=== PATIENT | male | born 1945 | race Caucasian/White ===

== ENCOUNTER 2017-06-29 10:10 | Observation (INO) ==
[2017-06-29] MEDS ORDERED: Aspirin 81 MG TAB.CHEW PO ONE (10:19)
[2017-06-29] MEDS ORDERED: Nitroglycerin 1 INCH/GM PACKET TP ONE (10:19)
--- NOTE | 2017-06-29 10:23 | Emergency Department Note ---
Disposition Clinical Impression: Left against medical advice Chest pain Qualifiers: Chest pain type: unspecified Qualified Code(s): R07.9 - Chest pain, unspecified Disposition: Home, Self-Care Condition: Undetermined Instructions: Chest Pain (ED), Against Medical Advice (ED), Hypertension (ED) Reasons to Return/Additional Instructions: Follow-up with someone of your choosing from the below reference site this week for recheck and for discussion of further ongoing outpatient evaluation and treatment. Return to the ED immediately for any new or worsening symptoms or any time to complete treatment and evaluation. Blood pressure screening: When you had your blood pressure taken, if the top number was greater than 120 or the bottom number was greater than 80, I discussed and recommended that you call your primary care provider or a physician of your choice this week to arrange follow-up for further evaluation of your blood pressure. Elevated blood pressures which go untreated can lead to stroke, heart attack, kidney failure, and other life-threatening diseases. This is a screening exam and recommednations are to follow with your family physician. (We discussed why the elevation could be occurring at this time. If you have had an EKG and/or x-ray performed in the emergency department, it will be reviewed by the security software engineer and/or radiologist. If the review changes your diagnosis or treatment you will be contacted at the phone number you provided. Prescribed outpatient testing: Please call to schedule an appointment for the test that was ordered on the form provided. If you have been prescribed an antibiotic: Take it as instructed until it is all finished. If you cannot tolerate that medication for some reason, call your physician for replacement. If you had a specimen collected for a culture: A culture report takes 48-72 hours to generate. You will be contacted if a change in treatment is needed. Return to the ED immediately if your condition worsens or if you have severe pain, fever, vomiting, or difficulty breathing or any other concerns. If you received or were prescribed a medication that may cause drowsiness ( Including Tramadol, Phenergan, Diazepam, Lorazepam, Hydroxyzine, Xanax, Hydrocodone, Oxycodone, Codeine, etc) DO NOT drive, drink alcohol, or operate machinery that requires you to be alert for at least 8 hours after taking that medication. If you smoke or chew tobacco products: discuss with your family physician options to help in the cessation in the use of tobacco products. If you do not have a physician: Go to [email or web address] or call [facility]: [phone] [facility]: [phone] [facility]: [phone] Time of Disposition: 12:00 Chest Pain HPI - General Chief Complaint: ED Chest Pain Stated Complaint: Chest Pain Source: patient Limitations: no limitations - History of Present Illness HPI Narrative: Patient presents to the emergency department for evaluation of substernal chest pain. He states that the pain began approximately 2 hours ago without inciting incident or injury. He describes the pain is dull without radiation or migration. He states that he did have some shortness of breath that has since resolved. No nausea vomiting or diaphoresis. Denies lower extremity edema or calf discomfort. Denies pain in the back or jaw or arms. He reports a history of an abdominal aortic aneurysm that has been repaired, denies symptoms today concerning for acute aortic pathology. I reviewed the CTA of the chest abdomen pelvis performed in March of this year. It confirms stable aortic aneurysm that time status post repair. Severity scale (1-10): 9 - Related Data Home Medications Medication Instructions Recorded Confirmed No Known Home Drugs 06/29/17 06/29/17 Allergies Allergy/AdvReac Type Severity Reaction Status Date / Time codeine AdvReac Shakiness Verified 03/08/17 20:45 Constitutional: Denies: fever, chills, weakness Eyes: Denies: eye pain, vision change ENT ED: Denies: throat pain, dysphagia Cardiovascular: Reports: chest pain. Denies: palpitations, dyspnea on exertion , orthopnea, edema, syncope, paroxysmal nocturnal dyspnea Respiratory: Reports: cough (Mild nonproductive cough). Denies: hemoptysis Gastrointestinal: Denies: abdominal pain, nausea, vomiting, diarrhea, constipation, melena, hematochezia Genitourinary: Denies: urgency, dysuria, frequency, hematuria Musculoskeletal: Denies: back pain, neck pain, joint swelling, arthralgia Integumentary: Denies: rash Neurological: Denies: headache, weakness, numbness, paresthesias, confusion, abnormal gait Psychiatric: Denies: anxiety Chest Pain PMH - Past Medical History Medical history: Reports: aortic aneurysm, coronary artery disease, hypertension , kidney stones, myocardial infarction Surgical history: Reports: herniorrhaphy, vascular surgery (AAA stent & repair) Psychiatric history: Reports: anxiety, depression - Social History Smoking Status: Former smoker Alcohol use: Reports: occasionally Drug use: Reports: none Physical Exam - General Limitations: no limitations General appearance: alert, in no apparent distress - Head Head exam: atraumatic, normocephalic, normal inspection - Eye Eye exam: Present: normal appearance, PERRL, EOMI. Absent: scleral icterus - ENT ENT exam: normal exam, normal oropharynx, mucous membranes moist - Neck Neck exam: Present: normal inspection, full ROM, trachea midline - Chest Chest inspection: Present: normal inspection, symmetric chest wall rise - Respiratory Respiratory exam: Present: normal lung sounds bilaterally - Cardiovascular Cardiovascular exam: Present: regular rate, normal rhythm, normal heart sounds - Abdominal Exam Abdominal exam: Present: soft, Non-Tender, normal bowel sounds. Absent: tenderness, distention, guarding, rebound, rigidity - Extremities Exam Extremities exam: Present: normal inspection, full ROM, normal capillary refill , other (Normal symmetrical distal pulses exam). Absent: tenderness, pedal edema, joint swelling, calf tenderness - Expanded Lower Extremity Exam Neurovascular/Tendon exam: Present: normal capillary refill. Absent: pulse deficit, motor deficit, sensory deficit - Back Exam Back exam: Present: normal inspection, full ROM. Absent: tenderness - Neurological Exam Neurological exam: Present: alert, oriented X3 - Psychiatric Psychiatric exam: Present: normal affect, normal mood - Skin Skin exam: Present: warm, dry, intact, normal color Course Course Narrative: Had an extensive conversation with family. They report patient does have a history with buying narcotics illicitly off the street. Today's presentation is not consistent with an acute infectious process to include valvular lesion, consideration was also given to acute aortic pathology and pulmonary embolism is felt to be unlikely based on his presentation. Patient does not notice blood pressure typically runs it appears that he has chronic underlying hypertension patient will be admitted to the hospitalist service for ongoing evaluation and treatment. The patient is alert oriented and appropriate. He is not intoxicated. He has a clear thought content. He has requested to sign out AGAINST MEDICAL ADVICE. Nursing staff as well as myself had a conversation with the patient with family present. I advised him the risks include permanent disability and . He understands these risks and still requests to sign out AGAINST MEDICAL ADVICE. He was recently seen at a facility in [place] and has unfilled prescriptions for aspirin and a blood pressure medication. Advised him to follow-up with the primary care provider for further ongoing outpatient valuation and treatment and that he may return to the ED at any time to complete treatment. Vital Signs Temperature 99.4 F 06/29/17 10:12 Pulse Rate 81 06/29/17 10:12 Respiratory Rate 16 06/29/17 10:12 Blood Pressure 199/105 06/29/17 10:12 O2 Sat by Pulse Oximetry 98 06/29/17 10:12 Temperature 99.4 F 06/29/17 10:12 Pulse Rate 69 06/29/17 11:51 Respiratory Rate 18 06/29/17 11:51 Blood Pressure 224/108 06/29/17 11:51 O2 Sat by Pulse Oximetry 100 06/29/17 11:51 Oxygen Delivery Oxygen Delivery Room Air Chest Pain - Lab Data Lab results reviewed: Yes I reviewed the patient's lab results. Result diagrams: 06/29/17 10:34 06/29/17 10:34 Lab Results 06/29/17 06/29/17 06/29/17 Range/Units 10:34 10:34 10:34 WBC (4.3-11.1) K/mcL RBC (4.19-5.50) M/mcL Hgb (12.9-16.9) g/dL Hct (37.5-50.1) % MCV (83.0-100.0) fL MCH (28.0-33.3) pg MCHC (31.6-35.5) g/dL RDW (11.5-14.5) % Plt Count (140-400) K/mcL Immature Gran % (0-4) % Seg Neutrophils % % Lymphocytes % % Monocytes % % Eosinophils % % Basophils % % Neutrophils # (1.6-8.9) K/mcL Lymphocytes # (0.6-4.6) K/mcL Monocytes # (0.0-1.3) K/mcL Eosinophils # (0.0-0.6) K/mcL Basophils # (0.0-0.2) K/mcL Hypochromasia (Not Present) Anisocytosis (Not Present) Microcytosis (Not Present) PT 14.4 H (9.4-12.1) Seconds INR 1.3 APTT 28.6 (26.0-36.0) Seconds Sodium (136-145) mEq/L Potassium (3.5-4.5) mEq/L Chloride (98-109) mEq/L Carbon Dioxide (19-29) mEq/L BUN (8-26) mg/dL Creatinine (0.72-1.25) mg/dL Est GFR ( Amer) (> 60) Est GFR (Non-Af Amer) (> 60) BUN/Creatinine Ratio (6-26) Glucose (70-99) mg/dL Calculated Osmolality (280-300) Calcium (8.6-10.8) mg/dL Total Bilirubin 0.6 (0.2-1.2) mg/dL Direct Bilirubin 0.3 (0.0-0.5) mg/dL Indirect Bilirubin 0.3 (0.0-1.2) mg/dL AST 17 (5-34) Units/L ALT 14 (0-55) Units/L Alkaline Phosphatase 78 (38-126) Units/L Troponin I (0-0.03) ng/mL Serum Total Protein 7.1 (6.0-8.3) g/dL Albumin 3.5 (3.5-5.0) g/dL Globulin 3.6 H (2.4-3.5) g/dL Albumin/Globulin Ratio 1.0 L (1.1-2.2) Lipase 13 (8-78) Units/L 06/29/17 06/29/17 06/29/17 Range/Units 10:34 10:34 10:34 WBC 4.9 (4.3-11.1) K/mcL RBC 4.50 (4.19-5.50) M/mcL Hgb 8.8 L (12.9-16.9) g/dL Hct 31.3 L (37.5-50.1) % MCV 69.6 L (83.0-100.0) fL MCH 19.6 L (28.0-33.3) pg MCHC 28.1 L (31.6-35.5) g/dL RDW 27.1 H (11.5-14.5) % Plt Count 285 (140-400) K/mcL Immature Gran % 0.4 (0-4) % Seg Neutrophils % 72.0 % Lymphocytes % 18.2 % Monocytes % 8.2 % Eosinophils % 0.6 % Basophils % 0.6 % Neutrophils # 3.5 (1.6-8.9) K/mcL Lymphocytes # 0.9 (0.6-4.6) K/mcL Monocytes # 0.4 (0.0-1.3) K/mcL Eosinophils # 0.0 (0.0-0.6) K/mcL Basophils # 0.0 (0.0-0.2) K/mcL Hypochromasia Present A (Not Present) Anisocytosis 1+ A (Not Present) Microcytosis Present A (Not Present) PT (9.4-12.1) Seconds INR APTT (26.0-36.0) Seconds Sodium 141 (136-145) mEq/L Potassium 3.3 L (3.5-4.5) mEq/L Chloride 105 (98-109) mEq/L Carbon Dioxide 24 (19-29) mEq/L BUN 12 (8-26) mg/dL Creatinine 1.10 (0.72-1.25) mg/dL Est GFR ( Amer) > 60 (> 60) Est GFR (Non-Af Amer) > 60 (> 60) BUN/Creatinine Ratio 11 (6-26) Glucose 117 H (70-99) mg/dL Calculated Osmolality 293 (280-300) Calcium 9.0 (8.6-10.8) mg/dL Total Bilirubin (0.2-1.2) mg/dL Direct Bilirubin (0.0-0.5) mg/dL Indirect Bilirubin (0.0-1.2) mg/dL AST (5-34) Units/L ALT (0-55) Units/L Alkaline Phosphatase (38-126) Units/L Troponin I 0.00 (0-0.03) ng/mL Serum Total Protein (6.0-8.3) g/dL Albumin (3.5-5.0) g/dL Globulin (2.4-3.5) g/dL Albumin/Globulin Ratio (1.1-2.2) Lipase (8-78) Units/L ITS Impressions Chest X-Ray 06/29/17 10:19 IMPRESSION: No evidence for acute cardiopulmonary process. D/ / 06/29/2017 11:03:17 Reno Quispe MD / suni Interpreting Provider: Reno Quispe MD - Radiology Data Radiology results reviewed: Yes I reviewed the patient's radiology results. - EKG Data EKG attestation: Yes I reviewed and interpreted this EKG. EKG shows normal: sinus rhythm (Normal sinus rhythm at a rate of 77. No acute ST segment or T-wave changes.)
[2017-06-29 10:50] LABS: INR 1.3; Prothrombin Time 14.4 Seconds (9.4-12.1)
[2017-06-29 10:53] LABS: Activated Partial Thrombo Time 28.6 Seconds (26.0-36.0)
[2017-06-29 11:00] LABS: Albumin 3.5 g/dL (3.5-5.0); Bilirubin,Direct 0.3 mg/dL (0.0-0.5); Bilirubin,Indirect 0.3 mg/dL (0.0-1.2); Bilirubin,Total 0.6 mg/dL (0.2-1.2); Globulin 3.6 g/dL (2.4-3.5); Total Protein 7.1 g/dL (6.0-8.3)
[2017-06-29 11:01] LABS: Basophils % 0.6 %; Eosinophils % 0.6 %; Hematocrit 31.3 % (37.5-50.1); Hemoglobin 8.8 g/dL (12.9-16.9); Immature Granulocytes % 0.4 % (0-4); Lymphocytes # 0.9 K/mcL (0.6-4.6); Lymphocytes % 18.2 %; Mean Corpuscular HGB Conc 28.1 g/dL (31.6-35.5); Mean Corpuscular Hemoglobin 19.6 pg (28.0-33.3); Mean Corpuscular Volume 69.6 fL (83.0-100.0); Monocytes # 0.4 K/mcL (0.0-1.3); Monocytes % 8.2 %; Neutrophils # 3.5 K/mcL (1.6-8.9); Platelet Count 285 K/mcL (140-400); Red Cell Distribution Width 27.1 % (11.5-14.5)
[2017-06-29 11:09] LABS: BUN/Creatinine Ratio 11 (6-26); Blood Urea Nitrogen 12 mg/dL (8-26); Carbon Dioxide 24 mEq/L (19-29); Chloride 105 mEq/L (98-109); Glucose 117 mg/dL (70-99); Osmolality,Calculated 293 (280-300); Potassium 3.3 mEq/L (3.5-4.5); Sodium 141 mEq/L (136-145); eGFR For African Americans > 60 (> 60); eGFR For Non-African Americans > 60 (> 60)
[2017-06-29 11:22] LABS: Anisocytosis 1+ (Not Present)
[2017-06-29 11:23] LABS: Hypochromasia Present (Not Present); Microcytosis Present (Not Present)
[2017-06-29] MEDS ORDERED: Potassium Chloride Elixir 20 MEQ/15 ML UDC PO ONE (11:32)
[2017-06-29] MEDS ORDERED: Naloxone 0.4 MG/ML INJ IVP PRN (12:11)
[2017-06-29] MEDS ORDERED: Acetaminophen 325 MG TABLET PO PRN (12:11)
[2017-06-29 13:37] LABS: Amphetamine Screen,Urine Negative ng/mL (Cutoff=1000); Barbiturate Screen,Urine Negative ng/mL (Cutoff=200); Benzodiazepines Screen,Urine Negative ng/mL (Cutoff=200); Cannabinoid Screen,Urine Negative ng/mL (Cutoff = 50); Cocaine Screen,Urine Negative ng/mL (Cutoff= 300); Opiate Screen,Urine Negative ng/mL (Cutoff=300); Phencyclidine Screen,Urine Negative ng/mL (Cutoff=25)
--- NOTE | 2017-06-29 15:23 | Internal Med History&Physical ---
Date of Encounter: 06/29/17 Time of Encounter: 14:50 Assessment and Plan (1) Chest pain Current visit: Yes Status: Acute Suspect chest wall origin. Will give ibuprofen when necessary. Repeat cardiac enzymes will be done. Qualifiers: Chest pain type: precordial pain Qualified Code(s): R07.2 - Precordial pain (2) Anemia Current visit: Yes Status: Acute Suspect iron deficiency. Will order anemia testing in a.m. Qualifiers: Anemia type: unspecified type Qualified Code(s): D64.9 - Anemia, unspecified (3) Hypokalemia Current visit: Yes Status: Acute Etiology not obvious. We will give supplemental potassium and monitor labs (4) Hypertension Current visit: No Status: Acute He was given IV Vasotec in emergency room. I will add oral Norvasc. Blood pressures will be monitored. Qualifiers: Hypertension type: essential hypertension Qualified Code(s): I10 - Essential (primary) hypertension Internal Medicine - H&P: HPI Chief complaint: Chest pain Admitted From: Home Plans for Post Hospital Care: Home History of present illness: Mr. Saxena is a 71 year old male who came to emergency room stating he had onset of discomfort in his chest while at leisure approximately 8 AM. He describes it as a dull sensation in his left anterior chest that came on slowly. It has increased in the hours since onset to level of 8/10 now. He came to emergency room and was evaluated and felt to deserve admission for ongoing care needs. He reports a previous similar episode several months ago. He does not get chest pain on exertion but admits he does not do much exertional activity. His cardiovascular history is significant for hypertension. He does not presently follow with a PCP/physician or take prescription medication. He claims he had an [place] in the 1980s followed by a heart catheter without further intervention recommended. Denies heart failure DVT or pulmonary embolus. Past Med Surg Social Fam HX - Past Medical History Medical history: aortic aneurysm, coronary artery disease, hypertension, kidney stones, myocardial infarction Psychiatric history: anxiety, depression - Past Surgical History Surgical History: herniorrhaphy, vascular surgery - Social History Smoking Status: Former smoker Smokeless Tobacco Status: No Alcohol use: occasionally Drug use: none - Family History Mother Living Status: Hx Family Cardiac Disorders: Yes (AZ) Father Living Status: Hx Family Cancer: Yes (Skin cancer) Internal Medicine - H&P: Meds No Known Home Drugs 06/29/17 [History] 3 Allergy/AdvReac Type Severity Reaction Status Date / Time codeine AdvReac Shakiness Verified 03/08/17 20:45 All Systems PM: A 10-system review of systems was performed and is negative for pertinent findings except as documented above in the HPI. Review of systems: Gen.: He states his weight has been stable the past few months Cardiovascular: As per history of present illness Respiratory: He states he started smoking at age 25 and quit approximately one month ago. He smoked up to one pack per day. He denies diagnosis of COPD but does not recall having PFTs. He does not use home oxygen. He denies being tested for sleep apnea. GI: His had occasional diarrhea in the past few months. He denies disorders of his liver gallbladder or exocrine pancreas otherwise. He was hospitalized at [facility] [place] March 2017 with acute blood loss anemia from upper GI bleed from NSAID use. EGD found bleeding duodenal bulb ulcer which was treated during endoscopy. : He has history of kidney stones. He denies other kidney bladder prostate disorders Neurologic: He denies large distribution strokes or seizures Endocrine: He denies diabetes thyroid disease or hyperlipidemia Hematology/oncology: Denies blood disorders cancers or anemia Psychiatric: He has anxiety but denies depression or other mental health issues Musculoskeletal: He denies arthritis gout or other bone joint or muscle disorders. - Constitutional Vitals: Temp Pulse Resp BP Pulse Ox 99.3 F 71 17 201/108 97 06/29/17 14:10 06/29/17 14:10 06/29/17 14:10 06/29/17 14:10 06/29/17 14:10 Exam: Gen.: He is a well-developed well-nourished male who appears in no acute distress at present time HEENT: Head is atraumatic and normocephalic. Eyes: EOMI. There is no scleral icterus. Mouth: Mucosa is moist. Neck: Supple and nontender. There is no thyromegaly or adenopathy noted. Heart: Regular without murmurs gallops or ectopics. Lungs: No wheezes or crackles are heard. Abdomen: Soft and nontender. No masses or guarding noted. Chest: He has tenderness in his chest wall to palpation at the site of chest pain. He states "that is the pain" on compressing the chest wall at that site. Extremities: There is no cyanosis edema or clubbing noted. Dorsalis pedis and posttibial pulses are 1-2 over 2 bilaterally. Neurologic: Mental status: He is talkative and a good historian. Cranial nerves : Smile is symmetric. Forehead wrinkles bilaterally. Tongue protrudes midline. EOMI. Motor: There is no pronator drift. Cerebellar: Finger to nose is intact bilaterally. Skin: Warm and dry Internal Med - H&P Results - Labs CBC & Chem 7: 06/29/17 10:34 06/29/17 10:34
[2017-06-29] MEDS: Ibuprofen 400 MG TABLET PO PRN ×2 (15:32→21:07)
[2017-06-29] MEDS: Acetaminophen 325 MG TABLET PO SCH ×2 (16:47→22:56)
[2017-06-29] MEDS: amLODIPine 5 MG TABLET PO SCH (16:48)
--- NOTE | 2017-06-29 17:59 | Electrocardiograph Report ---
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
[2017-06-29] MEDS ORDERED: Gabapentin 100 MG CAPSULE PO ONE (19:20)
[2017-06-29] MEDS ORDERED: traZODone 50 MG TABLET PO SCH (21:00)
[2017-06-29] MEDS ORDERED: traZODone 50 MG TABLET PO ONE (22:30)
[2017-06-30 08:08] LABS: Basophils % 0.4 %; Eosinophils # 0.1 K/mcL (0.0-0.6); Eosinophils % 2.6 %; Hematocrit 29.9 % (37.5-50.1); Hemoglobin 8.5 g/dL (12.9-16.9); Immature Granulocytes % 0.2 % (0-4); Lymphocytes # 1.8 K/mcL (0.6-4.6); Lymphocytes % 33.6 %; Mean Corpuscular HGB Conc 28.4 g/dL (31.6-35.5); Mean Corpuscular Hemoglobin 19.8 pg (28.0-33.3); Mean Corpuscular Volume 69.7 fL (83.0-100.0); Monocytes # 0.3 K/mcL (0.0-1.3); Monocytes % 6.2 %; Platelet Count 293 K/mcL (140-400); Red Blood Count 4.29 M/mcL (4.19-5.50); Red Cell Distribution Width 26.8 % (11.5-14.5)
[2017-06-30] MEDS: Acetaminophen 325 MG TABLET PO SCH (08:51)
[2017-06-30] MEDS: amLODIPine 5 MG TABLET PO SCH (08:52)
[2017-06-30 09:11] LABS: BUN/Creatinine Ratio 14 (6-26); Blood Urea Nitrogen 14 mg/dL (8-26); Calcium 8.5 mg/dL (8.6-10.8); Carbon Dioxide 22 mEq/L (19-29); Chloride 110 mEq/L (98-109); Glucose 110 mg/dL (70-99); Osmolality,Calculated 297 (280-300); Potassium 3.1 mEq/L (3.5-4.5); Sodium 143 mEq/L (136-145); eGFR For African Americans > 60 (> 60); eGFR For Non-African Americans > 60 (> 60)
[2017-06-30 09:23] LABS: Anisocytosis 2+ (Not Present); Hypochromasia Present (Not Present); Microcytosis Present (Not Present)
[2017-06-30 11:09] VITALS: BP 172/72
--- NOTE | 2017-06-30 11:43 | Discharge Summary ---
Date of Encounter: 06/30/17 Time of Encounter: 11:30 - Discharge Diagnosis (1) Chest pain Priority: Primary Status: Acute Qualifiers: Chest pain type: precordial pain Qualified Code(s): R07.2 - Precordial pain (2) Anemia Priority: Secondary Status: Acute Qualifiers: Anemia type: unspecified type Qualified Code(s): D64.9 - Anemia, unspecified (3) Hypokalemia Priority: Secondary Status: Acute (4) Hypertension Priority: Secondary Status: Chronic Qualifiers: Hypertension type: essential hypertension Qualified Code(s): I10 - Essential (primary) hypertension - Discharge Medications Prescriptions: Ascorbic Acid [Vitamin C] 500 mg PO DAILY #30 tablet.er Ferrous Sulfate 325 mg PO DAILY #30 tablet Lisinopril [Zestril] 20 mg PO DAILY #30 tablet Potassium Chloride 10 meq PO DAILY #7 tab.er.prt Home Medications: Ascorbic Acid [Vitamin C] 500 mg PO DAILY #30 tablet.er 06/30/17 [Rx] Ferrous Sulfate 325 mg PO DAILY #30 tablet 06/30/17 [Rx] Lisinopril [Zestril] 20 mg PO DAILY #30 tablet 06/30/17 [Rx] Potassium Chloride 10 meq PO DAILY #7 tab.er.prt 06/30/17 [Rx] Allergies/Adverse Reactions: 3 Allergy/AdvReac Type Severity Reaction Status Date / Time codekamilla Rodas Shakiness Verified 03/08/17 20:45 Date of admission: 06/29/17 13:14 Primary care physician: PCP NONE - Patient Status Disposition: Home, Self-Care Condition: Fair Functional capacity at discharge: independent ambulation Overall status at discharge: patient is progressing back to baseline - Discharge Instructions Follow Up With: NONE,PCP [Primary Care Provider] - 1 week Forms: ED Satisfaction Letter - Diet and Activity Activity: resume usual activities as tolerated Diet: advance to your usual diet Hospital course: Mr. Saxena is a 71 year old male who came to emergency room stating he had onset of discomfort in his chest while at leisure approximately 8 AM. He describes it as a dull sensation in his left anterior chest that came on slowly. It has increased in the hours since onset to level of 8/10 now. He came to emergency room and was evaluated and felt to deserve admission for ongoing care needs. Initial orders were written by the emergency room physician. I saw him on June 29 and performed the history and physical. Repeat cardiac enzymes showed no evidence of myocardial damage. When I saw him I felt the chest pain was likely to be of chest wall origin. I gave him ibuprofen and his pain had significantly lessed when I saw him on June 30. I told him he should not continue to use ibuprofen or other NSAIDs however because of anemia. He can use OTC Tylenol. Anemia testing was ordered with results pending at the time of this dictation. I started him empirically on ferrous sulfate and vitamin C since I suspect he has significant iron deficiency. His blood pressure remained elevated during hospitalization. He will be given lisinopril 20 mg daily at discharge. I so gave him a 7 day supply of potassium chloride 10 mEq for hypokalemia. He will be discharged home with instructions to follow with a PCP within one week. - Time Spent with Patient Total time spent providing and/or coordinating discharge services: - Constitutional Vitals: Temp Pulse Resp BP Pulse Ox 98.5 F 80 18 172/72 96 06/30/17 11:06 06/30/17 11:06 06/30/17 11:06 06/30/17 11:06 06/30/17 11:06
[2017-06-30 15:38] LABS: % Iron Saturation 4 % (20-55); Iron 17 mcg/dL (65-175); Transferrin 278 mg/dL (174-364)
[2017-06-30 15:53] LABS: Ferritin 44 ng/ml (22-275)
[2017-06-30 16:06] LABS: Folate 4.4 ng/mL (7.0-31.4)
== END 2017-06-30 12:33 | disposition home or self-care (01) ==
LOC: INPPIK 10:10 → EMEROOPIK 10:10 → UNDODISOB 13:30 → INPPIK 13:32
PROVIDERS: ADMIT Internal Medicine; ATTEND Internal Medicine